=== PATIENT | female | born 1975 | race Two or more races ===

== ENCOUNTER → 2025-01-06 | Outpatient (CLI) | payer MEDICARE, MEDICAID, SELFPAY ==
--- NOTE | 2025-01-06 12:54 | XR_ITS ---
Examination: Hand, left 3 views Technique: Hand AP, oblique, lateral 3 views Date and time of exam: January 06, 2025, 1426 hours INDICATIONS: First digit pain beginning 2 weeks ago. FINDINGS: Mild juxta-articular bone demineralization. No fracture. Minimal osteoarthritis distal interphalangeal joints second through fifth digits and interphalangeal joint first digit IMPRESSION: Minimal osteoarthritis
--- NOTE | 2025-01-06 13:00 | XR_ITS ---
Examination: Screening digital mammography, bilateral Computer aided detection 3-D breast Tomosynthesis, bilateral Date and time of exam: 01/06/2025, 12:57 PM Comparisons: June 2020 Indications: Screening Technique: Nonmagnified MLO, CC views of the breasts to been obtained, reconstructed from 3-D Tomosynthesis images. R2 computer aided detection program utilized for evaluation of suspicious masses and/or abnormal calcifications. 3-D Tomosynthesis images obtained. Technologist: Findings: There are scattered areas of fibroglandular density. No evidence of abnormal masses or suspicious calcifications. Impression: BI-RADS category 1: Negative findings (within normal) Recommend 1 year follow-up mammogram
== END | disposition home or self-care (01) ==
PROVIDERS: PCP Nurse Practitioner; Referring Provider Nurse Practitioner; Visit Provider Nurse Practitioner
DX: Z12.31 Encounter for screening mammogram for malignant neoplasm of breast (principal); R92.313 Mammographic fatty tissue density, bilateral breasts; M19.042 Primary osteoarthritis, left hand
CPT/HCPCS: 73130; 77063; 77067

== ENCOUNTER → 2025-04-13 | Outpatient (CLI) | payer MEDICARE, MEDICAID, SELFPAY ==
--- NOTE | 2025-04-13 | XR_ITS ---
Examination: Shoulder, left, 3 views Technique: Shoulder AP internal rotation, AP external rotation, Y view shoulder, 3 views Exam date and time : April 13, 2025, 1136 hours INDICATIONS: Left shoulder pain 1 year. FINDINGS: Moderate osteopenia. Mild to moderate narrowing glenohumeral joint Mild osteoarthritis acromioclavicular joint No fracture or shoulder dislocation IMPRESSION: Mild to moderate narrowing glenohumeral joint
--- NOTE | 2025-04-13 | XR_ITS ---
EXAMINATION: Bilateral wrist 6 views TECHNIQUE: AP oblique lateral each wrist total 6 views Date and time: April 13, 2025, 1153 hours INDICATIONS: Bilateral wrist pain 2 months. FINDINGS: Mild osteopenia. Soft tissue vascular calcification. No fracture or dislocation involving either wrist No erosive or other significant arthritic change involving either wrist IMPRESSION: No erosive or other significant arthritic change involving either wrist
--- NOTE | 2025-04-13 | XR_ITS ---
Examination: Bilateral hands, 6 views. Technique: AP, Oblique, Lateral each hand total 6 views Date and time of exam: April 13, 2025, 1136 hours INDICATIONS: Hand pain beginning 2 months ago. FINDINGS: Mild juxta articular bone demineralization No fracture or dislocation involving either hand. No erosive or other significant arthritic change involving either hand No foreign bodies No avascular necrosis Impression: Mild juxta articular bone demineralization No erosive or other significant arthritic change involving either hand
== END | disposition home or self-care (01) ==
LOC: CDIM 10:39
PROVIDERS: PCP Family Medicine; Referring Provider Nurse Practitioner; Visit Provider Physician Assistant
DX: M25.812 Other specified joint disorders, left shoulder (principal); M25.532 Pain in left wrist; M25.531 Pain in right wrist; M79.642 Pain in left hand; M79.641 Pain in right hand
CPT/HCPCS: 73030; 73110; 73130